=== PATIENT | female | born 1960 | race Caucasian/White ===

== ENCOUNTER → 2017-07-04 18:29 | Outpatient (CLI) | payer BC | END | disposition home or self-care (01) | LOC: D.MAMMO 11:30 | DX: Z12.31 Encounter for screening mammogram for malignant neoplasm of breast (principal) ==

== ENCOUNTER 2018-06-09 11:07 | Inpatient (IN) | payer BC ==
[~2018-06-09] VITALS: Ht 167.6 cm; Wt 80.5 kg
--- NOTE | ~2018-06-09 | DS ---
PATIENT:[address] :62 MEDICAL RECORD: [id number] DISCHARGE SUMMARY ADMISSION DATE: 06/09/18 DISCHARGE DATE: 06/10/18 DATE OF ADMISSION: 06/09/2018 DATE OF DISCHARGE: 06/10/2018 ADMISSION DIAGNOSIS: Acute appendicitis with perforation. DISCHARGE DIAGNOSIS: Acute appendicitis with perforation. PROCEDURE: Laparoscopic appendectomy on 06/09/2018. CONSULTATIONS: None. REPORT OF HOSPITALIZATION: The patient was admitted to the hospital through the Emergency Room with CT-guided evidence of acute appendicitis. The patient was given IV antibiotics and sent to the operating room, where she underwent a successful laparoscopic appendectomy. Postoperatively, she did well. She was maintained overnight and eventually discharged home the next day in good condition. DISCHARGE INSTRUCTIONS: She will return to clinic or call if any questions or concerns, fevers, chills, nausea, vomiting, or abdominal pain. ACTIVITIES: No heavy lifting or straining for 2 weeks postoperatively. FOLLOWUP: In clinic with me in 2-3 weeks. DISCHARGE DIET: Regular. DISCHARGE MEDICATIONS: Resume home medications with the inclusion of [place] 10s and Bactrim-DS. TRANSINT:[id number] Voice Confirmation ID: [id number] DOCUMENT ID: [id number] NEW GUTIERREZ MD at 1041 CC: [id number] DICTATION DATE: 07/18/18 08 MANAGER SCIENTIFIC: 07/18/18 1327 DIS IN 06/10/18 [id number] [place] [address]
--- NOTE | ~2018-06-09 | OP ---
PATIENT NAME: [address] MEDICAL RECORD: [id number] :62 LOCATION:[id number] ADMISSION DATE:06/09/18 SURGEON: KIP GUTIERREZ MD DATE OF OPERATION: 06/09/2018 PREOPERATIVE DIAGNOSES: 1. Acute appendicitis with localized peritonitis. 2. Hypertension. 3. Cardiac arrhythmia. POSTOPERATIVE DIAGNOSES: 1. Acute appendicitis with localized peritonitis. 2. Hypertension. 3. Cardiac arrhythmia. PROCEDURE: Laparoscopic appendectomy. SURGEON: Kip Gutierrez MD ASSEMBLER MUSICAL EQUIPMENT: Whitney Padilla APRN REPORT OF PROCEDURE: The patient's abdomen was prepped and draped in sterile fashion. A cutdown was made on the superior aspect of the umbilicus, 0 Vicryls were placed in the fascia bilaterally and the fascia was incised with 15-blade. I then bluntly entered the peritoneal cavity and placed a 12-mm Arlet port. Under direct visualization, a 5 mm trocar was placed in the left lower quadrant and another was placed in the suprapubic region. There was a lot of inflammatory changes in the right lower quadrant. I could see evidence of the appendix, but it was not very mobile, it was extending retrocolic, so I had to mobilize the right colon medially. As I did this, I was eventually able to take down some adhesions and get down to the base of the appendix. The tip of the appendix was dissected free and as we continued our dissection medially, we eventually were able to take down some inflamed fatty tissue and find the base of the appendix as it came out of the cecum. This was transected with a 45 blue load Endo-ROBB stapler. The mesoappendix was then taken down using a 45 white load Endo-ROBB stapler. There were a couple of bleeding vessels present and these were treated with clips and electrocautery. At this point, we saw no evidence of any active bleeding and the appendix was placed into an EndoCatch bag. We irrigated out the right lower quadrant and pelvis. Then, since there was some oozing from the tissue, Mirna was infused into the surrounding tissues. There was no sign of any surgical bleeding at the conclusion of the case. The right colon was laid back into the right abdomen. At this point, the ports and insufflation were removed and the appendix was taken out through the umbilicus. The umbilical fascia was closed with interrupted 0 Vicryls times 3. The wounds were then irrigated out with normal saline and infused with 10 mL of 0.25% Marcaine with epinephrine. The skin incisions were all closed with subcutaneous 5-0 Monocryl and dressed appropriately. COMPLICATIONS: None. CONDITION: Stable. ANESTHESIA: General endotracheal and local. BLOOD LOSS: 30 mL. OPERATIVE REPORT [id number] [address] TRANSINT:[id number] Voice Confirmation ID: [id number] DOCUMENT ID: [id number] KIP GUTIERREZ MD at 0801 CC: [id number] DICTATION DATE: 06/09/18 180 SUPPORT ASSOCIATE: 06/09/18 1848 DIS IN 06/10/18 [facility] [address] [place] [address]
[2018-06-09] MEDS ORDERED: TOPROL XL50 MG PO (11:13)
[2018-06-09] MEDS ORDERED: ASPIRIN EC81 M1 PO (11:13)
[2018-06-09] MEDS ORDERED: NIASPAN500 MG PO (11:13)
[2018-06-09] MEDS ORDERED: FLINTSTONE1 TAB.CHEW PO (11:13)
[2018-06-09 12:19] LABS: ALBUMIN 3.7 g/dL (3.4-5.0); ALKALINE PHOSPHATASE 64 U/L (46-116); ALT (SGPT) 24 U/L (10-68); BILIRUBIN - TOTAL 0.82 mg/dL (0.2-1.3); CALC OSMOLALITY 272 mosm/kg (275-300); CALCIUM 9.2 mg/dL (8.5-10.1); CARBON DIOXIDE 27.8 mmol/L (21.0-32.0); CHLORIDE - SERUM 99 mmol/L (98-107); CREATININE - SERUM 0.8 mg/dL (0.6-1.3); GLUCOSE 144 mg/dL (74-106); POTASSIUM - SERUM 3.6 mmol/L (3.5-5.1); PROTEIN - SERUM 8.3 g/dL (6.4-8.2); SODIUM 136 mmol/L (136-145); UREA NITROGEN 8 mg/dL (7-18); eGFR NON AFRICAN AMERICAN 78 mL/min (90-120)
[2018-06-09 12:20] LABS: BASOPHILS 0.1 % (0-2); EOSINOPHILS 0 % (0-7); HEMATOCRIT 40.7 % (36.0-48.0); HEMOGLOBIN 14.2 g/dL (12-16); IMMATURE GRANULOCYTES 0.5 % (0-5); LYMPHOCYTES 5.8 % (15-50); MCH 30.2 pg (26.0-34.0); MCHC 34.9 g/dL (31.0-37.0); MCV 86.6 fL (80.0-100.0); MEAN PLATELET VOLUME 10.2 fL (7.4-10.4); MONOCYTES 5.5 % (2-11); NEUTROPHILS 88.1 % (40-80); PLATELET COUNT 189 10x3/uL (130-400); RDW 13.8 % (11.5-14.5); WBC 17.8 10x3/uL (4.8-10.8)
[2018-06-09 12:53] LABS: AMYLASE - SERUM 39 U/L (25-115); LIPASE 86 U/L (73-393)
[2018-06-09 12:54] LABS: APPEARANCE CLEAR (CLEAR); BILIRUBIN NEGATIVE (NEGATIVE); COLOR DK YELLOW (YELLOW); GLUCOSE NEGATIVE (NEGATIVE); KETONE NEGATIVE (NEGATIVE); NITRITE NEGATIVE (NEGATIVE); PROTEIN 1+ mg/dL (NEGATIVE); UROBILINOGEN NORMAL (NORMAL)
[2018-06-09 12:55] LABS: BACTERIA FEW /hpf (NONE SEEN); EPITHELIAL CELLS RARE /hpf (0-5); MUCUS >1+ /lpf (NONE SEEN); RED CELLS - URINE 0-5 /hpf (0-5); WHITE CELLS - URINE RARE /hpf (0-5)
[2018-06-09 13:43] VITALS: BP 129/62
[2018-06-09 18:56] VITALS: BP 119/60
[2018-06-09 23:20] VITALS: BP 113/64; Ht 167.6 cm; Wt 80.5 kg
[2018-06-10 06:38] VITALS: BP 112/52
[2018-06-10 08:30] VITALS: BP 108/55
[2018-06-10] MEDS ORDERED: BACTRIM DS TABL1 TAB PO (10:44)
[2018-06-10] MEDS ORDERED: HYDROCODONE-APA1 TAB PO (10:44)
== END 2018-06-10 12:16 | disposition home or self-care (01) | DRG 340 ==
LOC: D.ER 11:07 → D.EDHOLD 14:08 → D.MS 14:08
PROVIDERS: Emergency Medicine; Surgery
PROC: 0DTJ4ZZ Resection of Appendix, Percutaneous Endoscopic Approach (ICD-10-PCS; principal; 2018-06-09 14:00)
DX: K35.3 Acute appendicitis with localized peritonitis (principal); I10 Essential (primary) hypertension; I49.9 Cardiac arrhythmia, unspecified

== ENCOUNTER → 2019-03-06 16:40 | Outpatient (CLI) | payer BC ==
[2018-06-09 23:20] VITALS: BMI 28.6
[~2019-03-06 16:40] MED LIST: ASPIRIN EC81 M1 PO; BACTRIM DS TABL1 TAB PO; FLINTSTONE1 TAB.CHEW PO; HYDROCODONE-APA1 TAB PO; NIASPAN500 MG PO; TOPROL XL50 MG PO
== END | disposition home or self-care (01) ==
LOC: D.MAMMO 08:15
PROVIDERS: ATTEND Family Medicine
DX: Z12.31 Encounter for screening mammogram for malignant neoplasm of breast (principal)

== ENCOUNTER 2019-04-04 08:00 | Outpatient (CLI) | payer BC ==
[2018-06-09 23:20] VITALS: BMI 28.6
== END 2019-04-04 09:00 | disposition home or self-care (01) ==
LOC: D.MAMMO 08:00
PROVIDERS: ATTEND Family Medicine
DX: R92.8 Other abnormal and inconclusive findings on diagnostic imaging of breast (principal)

== ENCOUNTER 2021-05-18 14:45 | Outpatient (CLI) | payer BC ==
[2018-06-09 23:20] VITALS: BMI 28.6
== END 2021-05-18 23:59 | disposition home or self-care (01) ==
LOC: D.MAMMO 14:45
PROVIDERS: ATTEND Family Medicine
DX: Z12.31 Encounter for screening mammogram for malignant neoplasm of breast (principal)